=== PATIENT | female | born 1965 | race Caucasian/White ===

== ENCOUNTER → 2023-10-11 | Outpatient (CLI) | payer BC ==
--- NOTE | 2023-10-11 11:48 | XR ---
EXAMINATION TYPE: XR foot complete RT DATE OF EXAM: 10/11/2023 11:28 AM CLINICAL INDICATION:Female, 57 years old with history of [id number] LOCAL SWELLING,LUMP COMPARISON: None TECHNIQUE: XR foot complete RT examined in the AP, oblique, and lateral projections. FINDINGS: No evidence of any acute osseous pathology. Mild soft tissue swelling most pronounced over the dorsa l foot of soft tissue swelling. Joints are preserved. IMPRESSION: Dorsal foot swelling, no evidence of fracture.
== END | disposition home or self-care (01) ==
LOC: RADXRYALE 11:14
PROVIDERS: ATTEND Internal Medicine
DX: M79.89 Other specified soft tissue disorders (principal); R22.41 Localized swelling, mass and lump, right lower limb